=== PATIENT | male | born 1965 | race Hispanic/Latino ===

== ENCOUNTER 2019-08-16 14:10 | Emergency (ER) | payer SELFPAY ==
--- NOTE | 2019-08-16 15:13 | EDPHYS ---
Physician Documentation [facility] Name: Chente Armenta Age: 54 yrs Sex: Male : 1965 Arrival Date: 08/16/2019 Time: 14:15 Bed 11 Private MD: ED Physician Armin Reza HPI: 08/16 15:09 This 54 yrs old Male presents to ER via Ambulatory with complaints of Knee jr8 Pain. 15:09 The patient presents with pain. The complaints affect the left knee. Context: The jr8 problem was sustained at a restaurant, resulted from the patient falling, the patient can partially bear weight, the patient is able to ambulate, with mild difficulty. Onset: The symptoms/episode began/occurred acutely, today. Modifying factors: The symptoms are alleviated by nothing. the symptoms are aggravated by movement, weight bearing, bending knee. Associated signs and symptoms: The patient has no apparent associated signs or symptoms. Severity of symptoms: At their worst the symptoms were moderate, in the emergency department the symptoms are unchanged. The patient has not experienced similar symptoms in the past. The patient has not recently seen a physician. Patient stated that he slipped on some water near restroom at [facility]. Denies hitting head or neck. No LOC. [place] left knee twist and pop. Since then has had pain . Historical: - Allergies: 14:26 Amoxicillin; hb - Home Meds: 14:26 amlodipine 10 mg tab 1 tab once daily [Active]; aspirin 81 mg Oral TbEC 1 tab once hb daily [Active]; enalapril maleate 20 mg Oral tab 1 tab 2 times per day [Active]; metoprolol tartrate 100 mg Oral tab 1 tab 2 times per day [Active]; - PMHx: 14:26 CVA; Hypertension; hb - PSHx: 14:26 None; hb - Immunization history:: Adult Immunizations up to date. - Social history:: Smoking status: Patient/guardian denies using tobacco. - Ebola Screening: : No symptoms or risks identified at this time. ROS: 15:09 Eyes: Negative for injury, pain, redness, and discharge, ENT: Negative for injury, jr8 pain, and discharge, Neck: Negative for injury, pain, and swelling, Cardiovascular: Negative for chest pain, palpitations, and edema, Respiratory: Negative for shortness of breath, cough, wheezing, and pleuritic chest pain, Abdomen/GI: Negative for abdominal pain, nausea, vomiting, diarrhea, and constipation, Back: Negative for injury and pain, Skin: Negative for injury, rash, and discoloration, Neuro: Negative for headache, weakness, numbness, tingling, and seizure. 15:09 MS/extremity: Positive for pain, tenderness, of the left knee. Exam: 15:09 Head/Face: Normocephalic, atraumatic. Eyes: Pupils equal round and reactive to light, jr8 extra-ocular motions intact. Lids and lashes normal. Conjunctiva and sclera are non-icteric and not injected. Cornea within normal limits. Periorbital areas with no swelling, redness, or edema. ENT: Nares patent. No nasal discharge, no septal abnormalities noted. Tympanic membranes are normal and external auditory canals are clear. Oropharynx with no redness, swelling, or masses, exudates, or evidence of obstruction, uvula midline. Mucous membranes moist. Neck: Trachea midline, no thyromegaly or masses palpated, and no cervical lymphadenopathy. Supple, full range of motion without nuchal rigidity, or vertebral point tenderness. No Meningismus. Chest/axilla: Normal chest wall appearance and motion. Nontender with no deformity. No lesions are appreciated. Cardiovascular: Regular rate and rhythm with a normal S1 and S2. No gallops, murmurs, or rubs. Normal PMI, no JVD. No pulse deficits. Respiratory: Lungs have equal breath sounds bilaterally, clear to auscultation and percussion. No rales, rhonchi or wheezes noted. No increased work of breathing, no retractions or nasal flaring. Abdomen/GI: Soft, non-tender, with normal bowel sounds. No distension or tympany. No guarding or rebound. No evidence of tenderness throughout. Back: No spinal tenderness. No costovertebral tenderness. Full range of motion. Skin: Warm, dry with normal turgor. Normal color with no rashes, no lesions, and no evidence of cellulitis. Neuro: Awake and alert, GCS 15, oriented to person, place, time, and situation. Cranial nerves II-XII grossly intact. Motor strength 5/5 in all extremities. Sensory grossly intact. Cerebellar exam normal. Normal gait. 15:09 Musculoskeletal/extremity: Extremities: grossly normal except: noted in the left knee: pain, tenderness, Posterior knee and lateral joint line. No gross effusion noted. No external trauma noted , ROM: intact in all extremities, full active range of motion, full passive range of motion, limited active range of motion due to pain, limited passive range of motion due to pain, Circulation is intact in all extremities. Sensation intact. Vital Signs: 14:26 BP 167 / 89; Pulse 74; Resp 16; Temp 97.8; Pulse Ox 100% on R/A; Weight 108.41 kg; hb Height 5 ft. 11 in. (180.34 cm); Pain 8/10; 14:26 Body Mass Index 33.33 (108.41 kg, 180.34 cm) hb MDM: 14:34 Patient medically screened. jr8 15:11 Data reviewed: vital signs, nurses notes, radiologic studies, plain films, and as a jr8 result, I will discharge patient. Data interpreted: Pulse oximetry: on room air is 100 %. Interpretation: normal. Counseling: I had a detailed discussion with the patient and/or guardian regarding: the historical points, exam findings, and any diagnostic results supporting the discharge/admit diagnosis, radiology results, the need for outpatient follow up, a orthopedic surgeon, to return to the emergency department if symptoms worsen or persist or if there are any questions or concerns that arise at home. 12 14:34 Order name: XRAY Knee LEFT 3 view jr8 Administered Medications: No medications were administered Disposition: 19:02 Co-signature as Attending Physician, Armin Reza MD Signing chart for administrative ps1 purposes. Available for consultation in ED. . Disposition: 08/16/19 15:12 Discharged to Home. Impression: Sprain of other specified parts of left knee. - Condition is Stable. - Discharge Instructions: Knee Sprain. - Prescriptions for meloxicam 15 mg Oral tablet - take 1 tablet by ORAL route once daily As needed; 12 tablet. - Medication Reconciliation Form, Thank You Letter, Antibiotic Education, Prescription Opioid Use form. - Follow up: Enrique Gilbert MD; When: 1 week; Reason: Recheck today's complaints, Continuance of care, Re-evaluation by your physician. - Problem is new. - Symptoms have improved. Signatures: Dispatcher [facility] Martina Bonds RN RN ss Antonio Mcclellan PA PA jr8 Juliet Lucero RN RN Armin Reza MD MD ps1 Corrections: (The following items were deleted from the chart) 15:23 15:12 08/16/2019 15:12 Discharged to Home. Impression: Sprain of other specified parts ss of left knee. Condition is Stable. Forms are Medication Reconciliation Form, Thank You Letter, Antibiotic Education, Prescription Opioid Use. Follow up: Enrique Gilbret; When: 1 week; Reason: Recheck today's complaints, Continuance of care, Re-evaluation by your physician. Problem is new. Symptoms have improved. jr8
--- NOTE | 2019-08-16 15:13 | ER ---
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 Pt was exiting [employer] [facility], slipped on wet floor, felt and heard left knee pop, landed supine. Denies other injuries. Transition of care: patient was not received from another setting of care. Onset of symptoms was August 16, 2019. Risk Assessment: Do you want to hurt yourself or someone else? Patient reports no desire to harm self or others. 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 14:24 Method Of Arrival: Ambulatory hb 14:24 Acuity: JUMANA 4 hb Historical: - Allergies: 14:26 Amoxicillin; hb - Home Meds: 14:26 amlodipine 10 mg tab 1 tab once daily [Active]; aspirin 81 mg Oral TbEC 1 tab once hb daily [Active]; enalapril maleate 20 mg Oral tab 1 tab 2 times per day [Active]; metoprolol tartrate 100 mg Oral tab 1 tab 2 times per day [Active]; - PMHx: 14:26 CVA; Hypertension; hb - PSHx: 14:26 None; hb - Immunization history:: Adult Immunizations up to date. - Social history:: Smoking status: Patient/guardian denies using tobacco. - Ebola Screening: : No symptoms or risks identified at this time. Vital Signs: 14:26 BP 167 / 89; Pulse 74; Resp 16; Temp 97.8; Pulse Ox 100% on R/A; Weight 108.41 kg; hb Height 5 ft. 11 in. (180.34 cm); Pain 8/10; 14:26 Body Mass Index 33.33 (108.41 kg, 180.34 cm) hb ED Course: 14:15 Patient arrived in ED. mr 14:26 Triage completed. hb 14:26 Arm band placed on. hb 14:34 Antonio Mcclellan PA is PHCP. jr8 14:34 Armin Reza MD is Attending Physician. jr8 15:03 XRAY Knee LEFT 3 view In Process Unspecified. EDMS 15:12 Enrique Gilbert MD is Referral Physician. jr8 15:22 No provider procedures requiring assistance completed. Patient did not have IV access ss during this emergency room visit. Administered Medications: No medications were administered Outcome: 15:12 Discharge ordered by MD. jr8 15:22 Discharged to home ambulatory, with family. ss 15:22 Condition: good 15:22 Discharge instructions given to patient, family, Instructed on discharge instructions, follow up and referral plans. medication usage, Demonstrated understanding of instructions, follow-up care, medications, Prescriptions given X 1. 15:23 Patient left the ED. ss Signatures: Dispatcher [employer] [facility] ChanSunshine Shelby, RN RN Antonio Aaron PA PA jr8 Juliet Lucero, LIVIA RN
[2019-08-16 15:28] VITALS: BP 167/89; TEMP 97.8; O2SAT 100
--- NOTE | 2019-08-16 15:36 | RAD REPORT ---
EXAM DESCRIPTION: RAD - Knee Left 3 View - 08/16/2019 3:01 pm CLINICAL HISTORY: PAIN COMPARISON: No comparisons FINDINGS: No fracture, dislocation or joint effusion.
== END 2019-08-16 15:23 | disposition home or self-care (01) ==
LOC: ER 14:10
DX: S83.8X2A Sprain of other specified parts of left knee, initial encounter (principal); W01.0XXA Fall on same level from slipping, tripping and stumbling without subsequent striking against object, initial encounter; Y93.89 Activity, other specified; Y92.511 Restaurant or cafe as the place of occurrence of the external cause; Z88.1 Allergy status to other antibiotic agents; I10 Essential (primary) hypertension; Z86.73 Personal history of transient ischemic attack (TIA), and cerebral infarction without residual deficits
CPT/HCPCS: 99283

== ENCOUNTER 2019-09-19 09:52 | Emergency (ER) | payer SELFPAY ==
[2019-09-19] MEDS ORDERED: LEVALBUTEROL 1.25 MG/3 ML NEB ONE (10:29)
--- NOTE | 2019-09-19 11:01 | ER ---
Nurse's Notes [facility] Name: Chente Armenta Age: 54 yrs Sex: Male : 1965 Arrival Date: 09/19/2019 Time: 09:54 Bed 23 Private MD: Diagnosis: Influenza due to certain identified influenza viruses;Streptococcal pharyngitis Presentation: 09/19 09:57 Presenting complaint: Patient states: cough and congestion that began night. aa5 Pt denies sore throat. Also c/o body aches. Transition of care: patient was not received from another setting of care. Onset of symptoms was September 2019. Risk Assessment: Do you want to hurt yourself or someone else? Patient reports no desire to harm self or others. Initial Sepsis Screen: Does the patient meet any 2 criteria? No. Patient's initial sepsis screen is negative. Does the patient have a suspected source of infection? No. Patient's initial sepsis screen is negative. Care prior to arrival: None. 09:57 Acuity: JUMANA 4 aa5 09:57 Method Of Arrival: Ambulatory aa5 Historical: - Allergies: 09:58 Amoxicillin; aa5 - Home Meds: 09:58 amlodipine 10 mg tab 1 tab once daily [Active]; aspirin 81 mg Oral TbEC 1 tab once aa5 daily [Active]; enalapril maleate 20 mg Oral tab 1 tab 2 times per day [Active]; metoprolol tartrate 100 mg Oral tab 1 tab 2 times per day [Active]; - PMHx: 09:58 CVA; Hypertension; aa5 - PSHx: 09:58 None; aa5 - Immunization history:: Flu vaccine is not up to date. - Social history:: Smoking status: Patient/guardian denies using tobacco. - Ebola Screening: : No symptoms or risks identified at this time. Screenin:00 Abuse screen: Denies threats or abuse. Nutritional screening: No deficits noted. aa5 Tuberculosis screening: No symptoms or risk factors identified. Fall Risk None identified. Assessment: 10:00 General: Appears uncomfortable, Behavior is calm, cooperative. Pain: Complains of pain aa5 in whole body Pain does not radiate. Pain currently is 8 out of 10 on a pain scale. Quality of pain is described as aching, Is continuous. Neuro: Level of Consciousness is awake, alert, obeys commands, Oriented to person, place, time, situation. Cardiovascular: Heart tones S1 S2 present Rhythm is regular. Respiratory: Reports cough that is productive, Airway is patent Respiratory effort is even, unlabored, Respiratory pattern is regular, symmetrical, Breath sounds are diminished bilaterally. GI: Abdomen is obese, Bowel sounds present X 4 quads. Abd is soft and non tender X 4 quads. : No signs and/or symptoms were reported regarding the genitourinary system. EENT: Reports nasal congestion nasal discharge. Derm: Skin is pink, warm \T\ dry. Musculoskeletal: Range of motion: intact in all extremities. 11:00 Reassessment: Patient appears in no apparent distress at this time. No changes from aj1 previously documented assessment. Patient and/or family updated on plan of care and expected duration. Pain level reassessed. Patient is alert, oriented x 3, equal unlabored respirations, skin warm/dry/pink. Vital Signs: 09:58 BP 154 / 78; Pulse 84; Resp 18 S; Temp 99.0(O); Pulse Ox 96% on R/A; Weight 113.4 kg aa5 (R); Height 5 ft. 11 in. (180.34 cm) (R); Pain 8/10; 09:58 Body Mass Index 34.87 (113.40 kg, 180.34 cm) aa5 ED Course: 09:54 Patient arrived in ED. as 09:57 Triage completed. aa5 09:57 Arm band placed on. aa5 09:57 Patient has correct armband on for positive identification. Bed in low position. Call aa5 light in reach. Side rails up X 1. Adult w/ patient. 09:59 Rajwinder Lester, RN is Primary Nurse. aa5 09:59 Sascha Jimenes PA is PHCP. [facility] 10:00 Papito Pham MD is Attending Physician. [facility] 11:18 No provider procedures requiring assistance completed. Patient did not have IV access aj1 during this emergency room visit. Administered Medications: 10:29 Drug: Xopenex (3) 1.25 mg Route: Inhalation; aa5 11:19 Follow up: Response: No adverse reaction aj1 11:17 Drug: Tussionex Pennkinetic ER 5 ml Route: PO; aj1 11:18 Follow up: Response: No adverse reaction aj1 Outcome: 10:59 Discharge ordered by MD. hood 11:18 Discharged to home ambulatory. aj1 11:18 Condition: good 11:18 Discharge instructions given to patient, Instructed on discharge instructions, follow up and referral plans. no drinking with medication, no driving heavy equipment, medication usage, Demonstrated understanding of instructions, follow-up care, medications, Prescriptions given X 3. 11:20 Patient left the ED. aj1 Signatures: Cely Holcomb RN RN aj1 Sascha Jimenes PA PA jmm Martinez, Amelia as Rajwinder Lester RN RN aa5 Corrections: (The following items were deleted from the chart) 09:57 Presenting complaint: Patient states: cough and congestion that began aa5 night. Pt denies sore throat. aa5 09:59 09:58 BP 154 / 78; Pulse 84bpm; Resp 18bpm; Spontaneous; Pulse Ox 96% RA; Temp 99.0F aa5 Oral; 113.4 kg Reported; Height 5 ft. 11 in. Reported; BMI: 34.8; aa5
--- NOTE | 2019-09-19 11:01 | EDPHYS ---
Physician Documentation [facility] Name: Chente Armenta Age: 54 yrs Sex: Male : 1965 Arrival Date: 09/19/2019 Time: 09:54 Bed 23 Private MD: ED Physician Papito Pham HPI: 09/19 10:17 This 54 yrs old Male presents to ER via Ambulatory with complaints of Flu jmm Symptoms. 10:17 The patient or guardian reports cough. Onset: The symptoms/episode began/occurred jmm gradually, 5 day(s) ago. Modifying factors: The symptoms are alleviated by nothing. the symptoms are aggravated by nothing. Associated signs and symptoms: Pertinent positives: sore throat, vomiting. This is a 54 year old male with a history of CVA, HTN that presents to the ED with complaints of cough, sore throat, vomiting beginning this past . Denies diarrhea. . Historical: - Allergies: 09:58 Amoxicillin; aa5 - Home Meds: 09:58 amlodipine 10 mg tab 1 tab once daily [Active]; aspirin 81 mg Oral TbEC 1 tab once aa5 daily [Active]; enalapril maleate 20 mg Oral tab 1 tab 2 times per day [Active]; metoprolol tartrate 100 mg Oral tab 1 tab 2 times per day [Active]; - PMHx: 09:58 CVA; Hypertension; aa5 - PSHx: 09:58 None; aa5 - Immunization history:: Flu vaccine is not up to date. - Social history:: Smoking status: Patient/guardian denies using tobacco. - Ebola Screening: : No symptoms or risks identified at this time. ROS: 10:17 Cardiovascular: Negative for chest pain, palpitations, and edema. jmm 10:17 Constitutional: Positive for body aches, fever. 10:17 ENT: Positive for sore throat. 10:17 Respiratory: Positive for cough. 10:17 Abdomen/GI: Positive for vomiting. 10:17 All other systems are negative. Exam: 10:17 Constitutional: This is a well developed, well nourished patient who is awake, alert, jmm and in no acute distress. Head/Face: atraumatic. Eyes: EOMI, no conjunctival erythema appreciated ENT: Moist Mucus Membranes Neck: Trachea midline, Supple Chest/axilla: Normal chest wall appearance and motion. Cardiovascular: Regular rate and rhythm. No edema appreciated Respiratory: Normal respirations, no respiratory distress appreciated Abdomen/GI: Non distended, soft Back: Normal ROM Skin: General appearance color normal MS/ Extremity: Moves all extremities, no obvious deformities appreciated, no edema noted to the lower extremities Neuro: Awake and alert, normal gait Psych: Behavior is normal, Mood is normal, Patient is cooperative and pleasant 10:17 ENT: Posterior pharynx: erythema, that is mild. Vital Signs: 09:58 BP 154 / 78; Pulse 84; Resp 18 S; Temp 99.0(O); Pulse Ox 96% on R/A; Weight 113.4 kg aa5 (R); Height 5 ft. 11 in. (180.34 cm) (R); Pain 8/10; 09:58 Body Mass Index 34.87 (113.40 kg, 180.34 cm) aa5 MDM: 10:12 [facility]. [facility] 10:58 Data reviewed: vital signs, nurses notes. Counseling: I had a detailed discussion with [facility] the patient and/or guardian regarding: the historical points, exam findings, and any diagnostic results supporting the discharge/admit diagnosis, lab results, the need for outpatient follow up, to return to the emergency department if symptoms worsen or persist or if there are any questions or concerns that arise at home. ED course: Patient is alert and non toxic in appearance in the ED. Patient advised to follow up with his pcp and otherwise given strict return precautions. patient understood and agrees with the plan of care. . 09/19 10:00 Order name: Flu; Complete Time: 10:31 [facility] 09/19 10:00 Order name: Strep; Complete Time: 10:31 [facility] Administered Medications: 10:29 Drug: Xopenex (3) 1.25 mg Route: Inhalation; aa5 11:19 Follow up: Response: No adverse reaction aj1 11:17 Drug: Tussionex Pennkinetic ER 5 ml Route: PO; aj1 11:18 Follow up: Response: No adverse reaction aj1 Disposition: 11:21 Co-signature as Attending Physician, Papito Pham MD I agree with the assessment and kdr plan of care. Disposition: 09/19/19 10:59 Discharged to Home. Impression: Influenza due to certain identified influenza viruses, Streptococcal pharyngitis. - Condition is Stable. - Discharge Instructions: Influenza, Adult, Strep Throat. - Prescriptions for Guaifenesin AC - take 5 milliliter by ORAL route every 4-6 hours; 120 milliliter. Zithromax Z- Kyrie 250 mg Oral Tablet - take 1 tablet by ORAL route as directed for 5 days Day 1 - take two (2) tablets one time. Day 2, 3, 4 , 5 take one (1) tablet once daily.; 6 tablet. Albuterol Sulfate 90 mcg/actuation - inhale 1-2 puff by INHALATION route every 4-6 hours; 1 Inhaler. - Medication Reconciliation Form, Thank You Letter, Antibiotic Education, Prescription Opioid Use form. - Follow up: Private Physician; When: 2 - 3 days; Reason: Recheck today's complaints, Continuance of care, Re-evaluation by your physician. Signatures: Dispatcher [employer] Cely Mcmahan RN RN aj1 Papito Pham MD MD kdr Mickail, Joel PA PA [facility] Rajwinder Lester RN RN aa5 Corrections: (The following items were deleted from the chart) 10:45 10:16 Chest Pa And Lat (2 Views)+[email or web address] ordered. [facility] 11:20 10:59 09/19/2019 10:59 Discharged to Home. Impression: Influenza due to certain aj1 identified influenza viruses; Streptococcal pharyngitis. Condition is Stable. Forms are Medication Reconciliation Form, Thank You Letter, Antibiotic Education, Prescription Opioid Use. Follow up: Private Physician; When: 2 - 3 days; Reason: Recheck today's complaints, Continuance of care, Re-evaluation by your physician. she
[2019-09-19] MEDS ORDERED: HYDROCODONE/CHLORPHEN 5 ML/OSYR ONE (11:18)
[2019-09-19 11:50] VITALS: BP 154/78; TEMP 99; O2SAT 96
== END 2019-09-19 11:20 | disposition home or self-care (01) ==
LOC: ER 09:52
DX: J10.1 Influenza due to other identified influenza virus with other respiratory manifestations (principal); I10 Essential (primary) hypertension; Z88.1 Allergy status to other antibiotic agents
CPT/HCPCS: 87081; 87804; 99284

== ENCOUNTER 2019-09-22 10:35 | Emergency (ER) | payer SELFPAY ==
--- NOTE | 2019-09-22 12:43 | RAD REPORT ---
EXAM DESCRIPTION: Patrice Merlos (2 Views)09/22/2019 12:37 pm CLINICAL HISTORY: sob COMPARISON: 2011 FINDINGS: Prominence of the interstitium within the lungs bilaterally. The heart is normal size IMPRESSION: Prominence of the interstitium within the lungs bilaterally may indicate a viral pneumon ia or atypical infection
[2019-09-22] MEDS ORDERED: ALBUTEROL 2.5 MG/3 ML NEB SOL ONE (12:52)
--- NOTE | 2019-09-22 13:52 | ER ---
Nurse's Notes [facility] Name: Chente Armenta Age: 54 yrs Sex: Male : 1965 Arrival Date: 09/22/2019 Time: 10:37 Bed 27 Private MD: Diagnosis: Pneumonia due to other specified bacteria Presentation: 09/22 11:02 Presenting complaint: Patient states: SOB that began this morning. Pt reports being aa5 diagnosed with strep throat and flu A on Wednesday here. Transition of care: patient was not received from another setting of care. Onset of symptoms was September 2019. Risk Assessment: Do you want to hurt yourself or someone else? Patient reports no desire to harm self or others. Initial Sepsis Screen: Does the patient meet any 2 criteria? No. Patient's initial sepsis screen is negative. Does the patient have a suspected source of infection? No. Patient's initial sepsis screen is negative. Care prior to arrival: None. 11:02 Acuity: JUMANA 3 aa5 11:02 Method Of Arrival: Ambulatory aa5 Triage Assessment: 13:16 General: Appears in no apparent distress. comfortable, Behavior is calm, cooperative. mg2 Respiratory: Onset: The symptoms/episode began/occurred gradually, the patient has mild shortness of breath. Historical: - Allergies: 11:04 Amoxicillin; aa5 - Home Meds: 11:04 metoprolol tartrate 100 mg Oral tab 1 tab 2 times per day [Active]; enalapril maleate aa5 20 mg Oral tab 1 tab 2 times per day [Active]; aspirin 81 mg Oral TbEC 1 tab once daily [Active]; amlodipine 10 mg tab 1 tab once daily [Active]; - PMHx: 11:04 CVA; Hypertension; aa5 - PSHx: 11:04 None; aa5 - Immunization history:: Flu vaccine is not up to date. - Social history:: Smoking status: Patient/guardian denies using tobacco. - Ebola Screening: : No symptoms or risks identified at this time. Screenin:16 Abuse screen: Denies threats or abuse. Denies injuries from another. Nutritional mg2 screening: No deficits noted. Tuberculosis screening: No symptoms or risk factors identified. Fall Risk None identified. Assessment: 13:14 General: Appears in no apparent distress. comfortable, Behavior is calm, cooperative. mg2 Pain: Denies pain. Neuro: Level of Consciousness is awake, alert, obeys commands, Oriented to person, place, time, situation. Cardiovascular: Capillary refill < 3 seconds Patient's skin is warm and dry. Respiratory: Airway is patent Respiratory effort is even, unlabored, Respiratory pattern is regular, symmetrical, Respiratory: Reports shortness of breath. GI: No signs and/or symptoms were reported involving the gastrointestinal system. : No signs and/or symptoms were reported regarding the genitourinary system. EENT: No signs and/or symptoms were reported regarding the EENT system. Derm: Skin is intact, is healthy with good turgor, Skin is pink, warm \T\ dry. normal. Musculoskeletal: Circulation, motion, and sensation intact. Capillary refill < 3 seconds. 13:34 Reassessment: Patient appears in no apparent distress at this time. Patient and/or mg2 family updated on plan of care and expected duration. Pain level reassessed. Patient is alert, oriented x 3, equal unlabored respirations, skin warm/dry/pink. 14:06 Cardiovascular: Rhythm is regular. mg2 Vital Signs: 11:04 BP 118 / 74; Pulse 65; Resp 18 S; Temp 98.2(O); Pulse Ox 95% on R/A; aa5 13:35 BP 136 / 80; Pulse 58; Resp 17; Pulse Ox 100% on Nebulizer Mask; mg2 ED Course: 10:37 Patient arrived in ED. as 11:02 Arm band placed on. aa5 11:03 Triage completed. aa5 12:09 Antonio Mcclellan PA is PHCP. jr8 12:10 Otf Marie MD is Attending Physician. jr8 12:11 Michael Fernandez, LIVIA is Primary Nurse. mg2 12:37 XRAY Chest Pa And Lat (2 Views) In Process Unspecified. EDMS 13:16 Patient has correct armband on for positive identification. mg2 13:16 No provider procedures requiring assistance completed. Patient did not have IV access mg2 during this emergency room visit. Administered Medications: 12:51 Drug: Albuterol 2.5 mg Route: Inhalation; mg2 13:15 Drug: Albuterol 2.5 mg Route: Inhalation; mg2 13:34 Drug: Albuterol 2.5 mg Route: Inhalation; mg2 13:34 Follow up: Response: No adverse reaction mg2 14:05 Follow up: Response: No adverse reaction mg2 Outcome: 13:51 Discharge ordered by MD. maharaj 14:05 Discharged to home ambulatory, with family. mg2 14:05 Condition: good 14:05 Discharge instructions given to patient, family, Instructed on discharge instructions, follow up and referral plans. medication usage, Demonstrated understanding of instructions, follow-up care, medications, Prescriptions given X 3. 14:06 Patient left the ED. mg2 Signatures: Dispatcher [employer] EDMS Yasmine Raygoza Audri, RN RN aa5 Antonio Mcclellan PA PA jr8 Michael Fernandez RN RN mg2
--- NOTE | 2019-09-22 13:52 | EDPHYS ---
Physician Documentation [facility] Name: Chente Armenta Age: 54 yrs Sex: Male : 1965 Arrival Date: 09/22/2019 Time: 10:37 Bed 27 Private MD: ED Physician Otf Marie HPI: 09/22 12:46 This 54 yrs old Male presents to ER via Ambulatory with complaints of jr8 Shortness Of Breath - flu/strep +. 12:46 The patient has shortness of breath at rest. Onset: The symptoms/episode began/occurred jr8 suddenly, today. Duration: The symptoms are continuous. The patient's shortness of breath has no apparent modifying factors. Associated signs and symptoms: Pertinent positives: non-productive cough. Severity of symptoms: At their worst the symptoms were moderate in the emergency department the symptoms are unchanged. The patient has not experienced similar symptoms in the past. The patient has been recently seen by a physician:. Patient diagnosed with influenza and strep this past Wednesday. Stated that today after taking shower started to feel acute short of breath. Currently is on zithromax and albuterol at home. Historical: - Allergies: 11:04 Amoxicillin; aa5 - Home Meds: 11:04 metoprolol tartrate 100 mg Oral tab 1 tab 2 times per day [Active]; enalapril maleate aa5 20 mg Oral tab 1 tab 2 times per day [Active]; aspirin 81 mg Oral TbEC 1 tab once daily [Active]; amlodipine 10 mg tab 1 tab once daily [Active]; - PMHx: 11:04 CVA; Hypertension; aa5 - PSHx: 11:04 None; aa5 - Immunization history:: Flu vaccine is not up to date. - Social history:: Smoking status: Patient/guardian denies using tobacco. - Ebola Screening: : No symptoms or risks identified at this time. ROS: 12:46 Eyes: Negative for injury, pain, redness, and discharge, ENT: Negative for injury, jr8 pain, and discharge, Neck: Negative for injury, pain, and swelling, Cardiovascular: Negative for chest pain, palpitations, and edema, Abdomen/GI: Negative for abdominal pain, nausea, vomiting, diarrhea, and constipation, Back: Negative for injury and pain, MS/Extremity: Negative for injury and deformity, Skin: Negative for injury, rash, and discoloration, Neuro: Negative for headache, weakness, numbness, tingling, and seizure. 12:46 Respiratory: Positive for cough, shortness of breath. Exam: 12:46 Eyes: Pupils equal round and reactive to light, extra-ocular motions intact. Lids and jr8 lashes normal. Conjunctiva and sclera are non-icteric and not injected. Cornea within normal limits. Periorbital areas with no swelling, redness, or edema. ENT: Nares patent. No nasal discharge, no septal abnormalities noted. Tympanic membranes are normal and external auditory canals are clear. Oropharynx with no redness, swelling, or masses, exudates, or evidence of obstruction, uvula midline. Mucous membranes moist. Neck: Trachea midline, no thyromegaly or masses palpated, and no cervical lymphadenopathy. Supple, full range of motion without nuchal rigidity, or vertebral point tenderness. No Meningismus. Cardiovascular: Regular rate and rhythm with a normal S1 and S2. No gallops, murmurs, or rubs. Normal PMI, no JVD. No pulse deficits. Abdomen/GI: Soft, non-tender, with normal bowel sounds. No distension or tympany. No guarding or rebound. No evidence of tenderness throughout. Back: No spinal tenderness. No costovertebral tenderness. Full range of motion. Skin: Warm, dry with normal turgor. Normal color with no rashes, no lesions, and no evidence of cellulitis. MS/ Extremity: Pulses equal, no cyanosis. Neurovascular intact. Full, normal range of motion. Neuro: Awake and alert, GCS 15, oriented to person, place, time, and situation. Cranial nerves II-XII grossly intact. Motor strength 5/5 in all extremities. Sensory grossly intact. Cerebellar exam normal. Normal gait. 12:46 Respiratory: the patient does not display signs of respiratory distress, Respirations: normal, symetrical, no use of accessory muscles, no grunting, no evidence of nasal flaring, no appreciated paradoxical movements, no pursed lip breathing, no retractions, no shallow respirations, no splinting, no tachypnea, Breath sounds: rales, that are mild, are heard in the left posterior lower lobe. Vital Signs: 11:04 BP 118 / 74; Pulse 65; Resp 18 S; Temp 98.2(O); Pulse Ox 95% on R/A; aa5 13:35 BP 136 / 80; Pulse 58; Resp 17; Pulse Ox 100% on Nebulizer Mask; mg2 MDM: 12:10 Patient medically screened. jr8 12:46 Data reviewed: vital signs, nurses notes, old medical records, radiologic studies, jr8 plain films. Data interpreted: Pulse oximetry: on room air is 95 %. Interpretation: normal. Counseling: I had a detailed discussion with the patient and/or guardian regarding: the historical points, exam findings, and any diagnostic results supporting the discharge/admit diagnosis, radiology results, the need for outpatient follow up, a family practitioner, to return to the emergency department if symptoms worsen or persist or if there are any questions or concerns that arise at home. 13:48 ED course: Patient feeling much better. CXR suspicious for pneumonia. Will have him jr8 finish zithromax and start him on steroids. 09/22 12:11 Order name: XRAY Chest Pa And Lat (2 Views); Complete Time: 12:45 jr8 Administered Medications: 12:51 Drug: Albuterol 2.5 mg Route: Inhalation; mg2 13:15 Drug: Albuterol 2.5 mg Route: Inhalation; mg2 13:34 Drug: Albuterol 2.5 mg Route: Inhalation; mg2 13:34 Follow up: Response: No adverse reaction mg2 14:05 Follow up: Response: No adverse reaction mg2 Disposition: 15:20 Co-signature as Attending Physician, Otf Marie MD I agree with the assessment and peng plan of care. Disposition: 09/22/19 13:51 Discharged to Home. Impression: Pneumonia due to other specified bacteria. - Condition is Stable. - Discharge Instructions: Community-Acquired Pneumonia, Adult. - Prescriptions for Levaquin 500 mg Oral Tablet - take 1 tablet by ORAL route once daily for 5 days; 5 tablet. Medrol (Kyrie) 4 mg Oral Tablets, Dose Pack - take 1 tablet by ORAL route as directed - follow package instructions; 1 packet. Zofran 4 mg Oral Tablet - take 1 tablet by ORAL route every 12 hours As needed; 20 tablet. Albuterol Sulfate 90 mcg/actuation - inhale 1-2 puff by INHALATION route every 4-6 hours; 1 Inhaler. - Medication Reconciliation Form, Thank You Letter, Antibiotic Education, Prescription Opioid Use form. - Follow up: Private Physician; When: 2 - 3 days; Reason: Recheck today's complaints, Continuance of care, Re-evaluation by your physician. - Problem is new. - Symptoms have improved. Signatures: Dispatcher [employer] EDOtf Odonnell MD MD cha Calderon, Audri, RN RN aa5 Antonio Mcclellan PA PA jr8 Michael Fernandez RN RN mg2 Corrections: (The following items were deleted from the chart) 14:06 13:51 09/22/2019 13:51 Discharged to Home. Impression: Pneumonia due to other specified mg2 bacteria. Condition is Stable. Forms are Medication Reconciliation Form, Thank You Letter, Antibiotic Education, Prescription Opioid Use. Follow up: Private Physician; When: 2 - 3 days; Reason: Recheck today's complaints, Continuance of care, Re-evaluation by your physician. Problem is new. Symptoms have improved. jr8
[2019-09-22 14:43] VITALS: TEMP 98.2
[2019-09-22 14:44] VITALS: BP 136/80; O2SAT 100
== END 2019-09-22 14:06 | disposition home or self-care (01) ==
LOC: ER 10:35
DX: J15.8 Pneumonia due to other specified bacteria (principal); Z88.1 Allergy status to other antibiotic agents; I10 Essential (primary) hypertension
CPT/HCPCS: 71046; 99284

== ENCOUNTER 2019-12-09 18:05 | Emergency (ER) | payer SELFPAY ==
[2019-12-09] MEDS ORDERED: LIDOCAINE 1% MPF 5 ML VIAL ONE (18:27)
[2019-12-09] MEDS ORDERED: TETANUS & DIPHTHERIA TOX,ADULT 0.5 ML VIAL ONE (18:34)
--- NOTE | 2019-12-09 19:34 | EDPHYS ---
Physician Documentation [facility] Name: Chente Armenta Age: 54 yrs Sex: Male : 1965 Arrival Date: 12/09/2019 Time: 18:08 Bed 24 Private MD: Laura Valdez H ED Physician Otf Marie HPI: 12/08 18:11 This 54 yrs old Male presents to ER via Ambulatory with complaints of Finger jmm Injury. 18:11 The patient or guardian reports injury, a laceration. Onset: The symptoms/episode jmm began/occurred acutely, just prior to arrival. 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 No UTD on tetanus immunizations. . Historical: - Allergies: 18:17 Amoxicillin; ss - Home Meds: 18:17 metoprolol tartrate 100 mg Oral tab 1 tab 2 times per day [Active]; enalapril maleate ss 20 mg Oral tab 1 tab 2 times per day [Active]; aspirin 81 mg Oral TbEC 1 tab once daily [Active]; - PMHx: 18:17 CVA; Hypertension; ss - PSHx: 18:17 None; ss - Immunization history:: Adult Immunizations up to date. - Social history:: Smoking status: Patient denies any tobacco usage or history of. ROS: 18:11 Constitutional: Negative for fever, chills, and weight loss, Cardiovascular: Negative jmm for chest pain, palpitations, and edema, Respiratory: Negative for shortness of breath, cough, wheezing, and pleuritic chest pain. 18:11 MS/extremity: Positive for injury or acute deformity, laceration. 18:11 Skin: Positive for laceration(s). 18:11 All other systems are negative. Exam: 19:25 Constitutional: This is a well developed, well nourished patient who is awake, alert, jmm and in no acute distress. Head/Face: atraumatic. Eyes: EOMI, no conjunctival erythema appreciated ENT: Moist Mucus Membranes Neck: Trachea midline, Supple Chest/axilla: Normal chest wall appearance and motion. Cardiovascular: Regular rate and rhythm. No edema appreciated Respiratory: Normal respirations, no respiratory distress appreciated Abdomen/GI: Non distended, soft Back: Normal ROM 19:25 Skin: General appearance color normal MS/ Extremity: Moves all extremities, no obvious deformities appreciated, no edema noted to the lower extremities Neuro: Awake and alert, normal gait Psych: Behavior is normal, Mood is normal, Patient is cooperative and pleasant 19:25 Skin: injury, laceration(s), the wound is approximately 3 cm(s), of the dorsal aspect of distal phalanx of left index finger and palmar aspect of distal phalanx of left index finger. Vital Signs: 18:15 Pulse 68; Resp 16; Temp 97.7(TE); Pulse Ox 99% on R/A; Weight 108.86 kg; Height 5 ft. ss 11 in. (180.34 cm); Pain 0/10; 18:15 Body Mass Index 33.47 (108.86 kg, 180.34 cm) ss Laceration: 19:25 Wound Repair of 3cm ( 1.2in ) subcutaneous laceration to left hand and palmar aspect of jmm distal phalanx of left index finger and dorsal aspect of distal phalanx of left index finger. Distal neuro/vascular/tendon intact. Anesthesia: Local anesthetic administered with 5 mls of 1% lidocaine. Skin closed with 7 5-0 Prolene using simple sutures and sterile technique. Patient tolerated well. MDM: 18:11 Patient medically screened. [facility] 19:32 Data reviewed: vital signs, nurses notes. Counseling: I had a detailed discussion with sana the patient and/or guardian regarding: the historical points, exam findings, and any diagnostic results supporting the discharge/admit diagnosis, the need for outpatient follow up, to return to the emergency department if symptoms worsen or persist or if there are any questions or concerns that arise at home. ED course: Patient given wound infection return precautions. Patient understood and agrees with the plan of care. . Administered Medications: 18:30 Drug: Lidocaine (1 %) 5 ml {Note: by Rory Jimenes for suture repair..} Volume: 5 ml; ll1 Route: Infiltration; 19:41 Follow up: Response: No adverse reaction ll1 18:35 Drug: Tetanus-Diphtheria Toxoid Adult 0.5 ml {Tip Mender: [employer]. Exp: ll1 02/16/2021. Lot #: [id number]. } Route: IM; Site: right deltoid; 19:40 Follow up: Response: No adverse reaction; RASS: Alert and Calm (0) 1 Disposition: 12/09 13:51 Co-signature as Attending Physician, Otf Marie MD I agree with the assessment and peng plan of care. Disposition: 12/09/19 19:33 Discharged to Home. Impression: Finger Laceration. - Condition is Stable. - Discharge Instructions: Laceration Care, Adult. - Medication Reconciliation Form, Thank You Letter, Antibiotic Education, Prescription Opioid Use form. - Follow up: Laura Valdez DO; When: 7 - 10 days; Reason: Recheck today's complaints, Continuance of care, Staple/Suture removal, Re-evaluation by your physician. Signatures: Otf Marie MD MD cha Mickail, Joel, PA PA jmm Smirch, Shelby, RN RN ss Dilan Kelly RN RN ll1 Corrections: (The following items were deleted from the chart) 12/08 19:41 19:33 12/09/2019 19:33 Discharged to Home. Impression: Finger Laceration. Condition is ll1 Stable. Forms are Medication Reconciliation Form, Thank You Letter, Antibiotic Education, Prescription Opioid Use. Follow up: Laura Valdez; When: 7 - 10 days; Reason: Recheck today's complaints, Continuance of care, Staple/Suture removal, Re-evaluation by your physician. sana
--- NOTE | 2019-12-09 19:34 | ER ---
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 Coronavirus screen: Patient denies fever greater than 100.4F, cough, shortness of breath, or difficulty breathing. Proceed with normal triage process. Ebola Screen: Patient denies exposure to infectious person. Patient denies travel to an Ebola-affected area in the 21 days before illness onset. Initial Sepsis Screen: Does the patient meet any 2 criteria? No. Patient's initial sepsis screen is negative. Does the patient have a suspected source of infection? No. Patient's initial sepsis screen is negative. Risk Assessment: Do you want to hurt yourself or someone else? Patient reports no desire to harm self or others. 18:15 Method Of Arrival: Ambulatory ss 18:15 Acuity: JUMANA 4 ss 18:49 Onset of symptoms was December 09, 2019. ll1 Historical: - Allergies: 18:17 Amoxicillin; ss - Home Meds: 18:17 metoprolol tartrate 100 mg Oral tab 1 tab 2 times per day [Active]; enalapril maleate ss 20 mg Oral tab 1 tab 2 times per day [Active]; aspirin 81 mg Oral TbEC 1 tab once daily [Active]; - PMHx: 18:17 CVA; Hypertension; ss - PSHx: 18:17 None; ss - Immunization history:: Adult Immunizations up to date. - Social history:: Smoking status: Patient denies any tobacco usage or history of. Screenin:48 Abuse screen: Denies threats or abuse. Nutritional screening: No deficits noted. ll1 Tuberculosis screening: No symptoms or risk factors identified. Fall Risk None identified. Total Daniel Fall Scale indicates No Risk (0-24 pts). Assessment: 18:47 General: Appears in no apparent distress. Behavior is calm, cooperative. Pain: Denies ll1 pain. Neuro: No deficits noted. Cardiovascular: No deficits noted. Respiratory: No deficits noted. GI: No deficits noted. Derm: Reports laceration to finger. Musculoskeletal: No deficits noted. Injury Description: Laceration sustained to right hand 2nd digit is 0.5 to 2.5 cm long, not bleeding, was sustained 1-2 hours ago. a small amount of bleeding noted at this time. Vital Signs: 18:15 Pulse 68; Resp 16; Temp 97.7(TE); Pulse Ox 99% on R/A; Weight 108.86 kg; Height 5 ft. ss 11 in. (180.34 cm); Pain 0/10; 18:15 Body Mass Index 33.47 (108.86 kg, 180.34 cm) ss ED Course: 18:08 Patient arrived in ED. am2 18:08 Laura Valdez DO is Private Physician. am2 18:09 Sascha Jimenes PA is PHCP. [facility] 18:09 Otf Marie MD is Attending Physician. [facility] 18:12 Dilan Kelly, LIVIA is Primary Nurse. 1 18:16 Triage completed. ss 18:17 Arm band placed on right wrist. ss 18:49 Patient has correct armband on for positive identification. Bed in low position. Call ll1 light in reach. Side rails up X 1. 19:33 Laura Valdez DO is Referral Physician. [facility] 19:38 Dressings: Adaptic X 1; left index finger Kerlix X 1; left index finger 4X4s X 1; left ll1 index finger triple antibiotic. 19:39 No provider procedures requiring assistance completed. Patient did not have IV access ll1 during this emergency room visit. Administered Medications: 18:30 Drug: Lidocaine (1 %) 5 ml {Note: by Rory Jimenes for suture repair..} Volume: 5 ml; ll1 Route: Infiltration; 19:41 Follow up: Response: No adverse reaction ll1 18:35 Drug: Tetanus-Diphtheria Toxoid Adult 0.5 ml {[employer]: [employer]. Exp: ll1 02/16/2021. Lot #: [id number]. } Route: IM; Site: right deltoid; 19:40 Follow up: Response: No adverse reaction; RASS: Alert and Calm (0) ll1 Outcome: 19:33 Discharge ordered by . [facility] 19:40 Discharged to home ambulatory. ll1 19:40 Condition: good 19:40 Discharge instructions given to patient, Instructed on discharge instructions, follow up and referral plans. wound care, Demonstrated understanding of instructions, follow-up care, wound care. 19:41 Patient left the ED. 1 Signatures: Sascha Jimenes PA PA jmm Smirch, Shelby, RN RN ss Moreno, Amanda am2 Lewis, Lynsay, RN RN 1
[2019-12-09 19:46] VITALS: TEMP 97.7; O2SAT 99
== END 2019-12-09 19:41 | disposition home or self-care (01) ==
LOC: ER 18:05
PROC: 0JQK0ZZ Repair Left Hand Subcutaneous Tissue and Fascia, Open Approach (ICD-10-PCS; principal; 2019-12-09)
DX: S61.211A Laceration without foreign body of left index finger without damage to nail, initial encounter (principal); W27.8XXA Contact with other nonpowered hand tool, initial encounter; Y93.89 Activity, other specified; Y92.9 Unspecified place or not applicable; Z86.73 Personal history of transient ischemic attack (TIA), and cerebral infarction without residual deficits; Z79.82 Long term (current) use of aspirin; Z23 Encounter for immunization; I10 Essential (primary) hypertension
CPT/HCPCS: 90471; 90714; 99282

== ENCOUNTER 2021-04-29 04:54 | Emergency (ER) | payer OTHER, SELFPAY ==
[2021-04-29 06:09] LABS: Absolute Lymphocytes (CBC) 1.6 K/uL (0.7-4.9); Basophils % 0.3 % (0-1.3); Hematocrit 44.2 % (39.6-49.0); MPV 7.8 fL (7.6-11.3); RBC Red Blood Cell Count 5.12 M/uL (4.33-5.43)
[2021-04-29 06:17] LABS: Protime INR 0.94
[2021-04-29 06:29] LABS: ALT/SGPT 32 U/L (12-78); AST/SGOT 12 U/L (15-37); Albumin 3.5 g/dL (3.4-5.0); Alkaline Phosphatase 150 U/L (45-117); BUN Blood Urea Nitrogen 12 mg/dL (7-18); Bicarbonate 28 mmol/L (21-32); Bilirubin Direct 0.1 mg/dL (0-0.2); Bilirubin Total 0.5 mg/dL (0.2-1.0); Glucose Level 215 mg/dL (74-106); NT PRO-BNP 37 pg/mL (<125); Potassium 3.8 mmol/L (3.5-5.1); Protein, Total 7.6 g/dL (6.4-8.2); Sodium Level 137 mmol/L (136-145); Troponin (Emerg Dept Use Only) < 0.02 ng/mL (0.0-0.045)
[2021-04-29] MEDS ORDERED: NA CHLORIDE 0.9% 1,000 ML ONE (07:04)
[2021-04-29] MEDS ORDERED: FOLIC ACID 5 MG/ML VIAL ONE (07:08)
[2021-04-29] MEDS ORDERED: ENALAPRIL 10 MG TAB ONE (07:11)
[2021-04-29] MEDS ORDERED: METOPROLOL TAR 50 MG TAB ONE (07:11)
[2021-04-29] MEDS ORDERED: AMLODIPINE 10 MG TAB ONE (07:11)
--- NOTE | 2021-04-29 08:24 | RAD REPORT ---
EXAM DESCRIPTION: MRI - Brain Wo Cont - 04/29/2021 7:38 am CLINICAL HISTORY: DIZZINESS Headache, drowsiness, CVA symptomology COMPARISON: Head Brain Wo Cont dated 04/29/2021 TECHNIQUE: Multi-sequence, multiplanar MR imaging of the brain was performed without contrast. FINDINGS: No intracranial hemorrhage, hydrocephalus or extra-axial fluid collections. No edema or sh ift of midline structures. No findings to suspect brain mass. DWI is negative for acute CVA. Midline structures are normally formed. Mild mucosal thickening of the inferior aspect of both maxillary antra. The paranasal sinuses and mas toids are otherwise clear. IMPRESSION: Negative for acute CVA or other acute intracranial abnormality.
--- NOTE | 2021-04-29 08:59 | RAD REPORT ---
EXAM DESCRIPTION: RAD - Chest Single View - 04/29/2021 6:24 am CLINICAL HISTORY: COUGH Chest pain. COMPARISON: Chest Pa And Lat (2 Views) dated 09/22/2019; CHEST SINGLE VIEW dated 10/17/2011; CHEST SING LE VIEW dated 08/22/2010; CHEST SINGLE VIEW dated 01/12/2009 FINDINGS: Portable technique limits examination quality. The lungs are grossly clear. The heart is upper limit of normal in size. No displaced fractures. IMPRESSION: No acute intrathoracic process suspected.
--- NOTE | 2021-04-29 09:39 | ER ---
Nurse's Notes [facility] Name: Chente Armenta Age: 56 yrs Sex: Male : 1965 Arrival Date: 04/29/2021 Time: 04:58 Bed 23 Private MD: Diagnosis: Essential (primary) hypertension;Paresthesia of skin;Hyperglycemia, unspecified Presentation: 04/29 05:20 Chief complaint: Patient states: he hasn't been able to sleep tonight he is worried bb about the tingling which started in his right heel approx 2200 last night last time he had symptoms like this he had a TIA. Coronavirus screen: At this time, the client does not indicate any symptoms associated with coronavirus-19. Ebola Screen: No symptoms or risks identified at this time. Initial Sepsis Screen: Does the patient meet any 2 criteria? No. Patient's initial sepsis screen is negative. Does the patient have a suspected source of infection? No. Patient's initial sepsis screen is negative. Risk Assessment: Do you want to hurt yourself or someone else? Patient reports no desire to harm self or others. Onset of symptoms was April 28, 2021. 05:20 Method Of Arrival: Ambulatory bb 05:20 Acuity: JUMANA 3 bb Triage Assessment: 05:23 General: Appears in no apparent distress. Behavior is calm, cooperative. Pain: Denies bb pain. Neuro: Level of Consciousness is awake, alert, obeys commands, Oriented to person, place, time, situation. Cardiovascular: Capillary refill < 3 seconds Patient's skin is warm and dry. Respiratory: Respiratory effort is even, unlabored, Respiratory pattern is regular. GI: No signs and/or symptoms were reported involving the gastrointestinal system. Derm: Skin is pink, warm \T\ dry. Musculoskeletal: Circulation, motion, and sensation intact. Historical: - Allergies: 05:23 Amoxicillin; bb - Home Meds: 05:23 amlodipine 10 mg tab 1 tab once daily [Active]; aspirin 81 mg Oral TbEC 1 tab once bb daily [Active]; enalapril maleate 20 mg Oral tab 1 tab 2 times per day [Active]; metoprolol tartrate 100 mg Oral tab 1 tab 2 times per day [Active]; - PMHx: 05:23 CVA; Hypertension; bb - PSHx: 05:23 None; bb - Immunization history:: Adult Immunizations up to date, Client reports having NOT received the Covid vaccine. - Social history:: Smoking status: Patient denies any tobacco usage or history of. Patient uses alcohol, occasionally. Patient/guardian denies using street drugs. - Family history:: not pertinent. Screenin:13 Abuse screen: Denies threats or abuse. Nutritional screening: No deficits noted. ap3 Tuberculosis screening: No symptoms or risk factors identified. Fall Risk None identified. Assessment: 05:42 General: Appears in no apparent distress. Behavior is calm, cooperative, Smells of ch4 Reports. Pain: Denies pain. Neuro: No deficits noted. Cardiovascular: No deficits noted. Respiratory: No deficits noted. GI: No deficits noted. : No deficits noted. EENT: No deficits noted. Derm: No deficits noted. Musculoskeletal: No deficits noted. 08:37 General: Appears in no apparent distress. comfortable, Behavior is calm, cooperative, ap3 appropriate for age. Pain: Denies pain. Neuro: Level of Consciousness is awake, alert, obeys commands, Oriented to person, place, time, situation, Appropriate for age Moves all extremities. Gait is steady, Speech is normal. 09:37 Reassessment: Patient and/or family updated on plan of care and expected duration. Pain ap3 level reassessed. Patient is alert, oriented x 3, equal unlabored respirations, skin warm/dry/pink. Vital Signs: 05:20 BP 170 / 91; Pulse 69; Resp 16 S; Temp 98.3; Pulse Ox 99% on R/A; Weight 99.79 kg (R); bb Height 5 ft. 11 in. (180.34 cm) (R); Pain 0/10; 05:41 BP 173 / 91 Sitting; Pulse 67; Resp 18 S; Temp 98.2; Pulse Ox 99% on R/A; ch4 07:14 BP 136 / 86; Pulse 63; Resp 17; Pulse Ox 99% on R/A; ap3 08:22 BP 165 / 86; Pulse 62; Resp 18; Pulse Ox 98% on R/A; ap3 09:37 BP 142 / 83; Pulse 76; Pulse Ox 98% on R/A; ap3 05:20 Body Mass Index 30.68 (99.79 kg, 180.34 cm) bb NIH Stroke Scale Scores: 05:45 NIHSS Score: 0 [facility] ED Course: 04:58 Patient arrived in ED. bp1 05:23 Triage completed. bb 05:23 Arm band placed on Patient placed in an exam room, on a stretcher. bb 05:28 Erin Hall, RN is Primary Nurse. ch4 05:28 Otf Marie MD is Attending Physician. peng 06:02 Inserted saline lock: 18 gauge in right antecubital area, using aseptic technique. ch4 06:14 CT Head Brain wo Cont Sent. ch4 06:19 CT Head Brain wo Cont In Process Unspecified. EDMS 06:23 XRAY Chest (1 view) In Process Unspecified. EDMS 07:13 Patient moved to MRI via wheelchair. ap3 07:13 Patient has correct armband on for positive identification. Bed in low position. Call ap3 light in reach. Side rails up X2. counter checker on. Pulse ox on. NIBP on. Door closed. Noise minimized. 07:36 Brain Wo Cont In Process Unspecified. EDMS 07:44 Patient moved back from MRI. ap3 09:38 Ziyad Kilpatrick MD is Referral Physician. jr8 09:49 No provider procedures requiring assistance completed. IV discontinued, intact, ap3 bleeding controlled, No redness/swelling at site. Pressure dressing applied. Administered Medications: 06:02 Drug: NS 0.9% 1000 ml Route: IV; Rate: 125 ml/hr; Site: right antecubital; ch4 09:50 Follow up: IV Status: Completed infusion; IV Intake: 800ml ap3 06:44 Drug: foLIC Acid 1 mg Route: IVPB; Site: right antecubital; ch4 09:50 Follow up: IV Status: Completed infusion ap3 06:49 Drug: Lopressor (metoprolol TARTRATE) 100 mg Route: PO; ch4 09:50 Follow up: Response: No adverse reaction; Blood pressure is lowered ap3 06:49 Drug: Enalapril 20 mg Route: PO; ch4 09:50 Follow up: Response: No adverse reaction; Blood pressure is lowered ap3 06:49 Drug: Norvasc (amlodipine) 10 mg Route: PO; ch4 09:50 Follow up: Response: No adverse reaction ap3 Intake: 09:50 IV: 800ml; Total: 800ml. ap3 Outcome: 09:38 Discharge ordered by . jr8 09:49 Discharged to home ambulatory. ap3 09:49 Condition: good 09:49 Discharge instructions given to patient, Instructed on discharge instructions, follow up and referral plans. medication usage, Demonstrated understanding of instructions, follow-up care, medications, Prescriptions given X 4. 09:52 Patient left the ED. ap3 NIH Stroke Scale - NIH Stroke Score Date: 04/29/2021 Time: 05:45 Total Score = 0 1a. Level of Consciousness (LOC) - 0(Alert) 1b. Level of Consciousness (LOC) (Month \T\ Age) - 0(Both) 1c. LOC Commands (Open \T\ Closes Eyes/Chief Lock Tender Operator) - 0(Both) 2. Best Gaze (Lateral Gaze Paresis) - 0(Normal) 3. Visual Field Loss - 0(No visual loss) 4. Facial Palsy - 0(Normal) 5a. Left Arm: Motor (10-second hold) - 0(No drift) 5b. Right Arm: Motor (10-second hold) - 0(No drift) 6a. Left Leg: Motor (5-second hold - always test supine) - 0(No drift) 6b. Right Leg: Motor (5-second hold - always test supine) - 0(No drift) 7. Limb Ataxia (finger/nose \T\ heel/araujo - test with eyes open) - 0(Absent) 8. Sensory Loss (pinprick arms/legs/face) - 0(Normal) 9. Best Language: Aphasia (description/naming/reading) - 0(No aphasia) 10. Dysarthria (speech clarity - read or repeat words) - 0(Normal) 11. Extinction and Inattention (visual/tactile/auditory/spatial/personal) - 0(No abnormality) Initials: peng Signatures: Dispatcher [employer] EDMN Otf Marie MD MD cha Ballard, Brenda RN RN Antonio Blanco PA PA jr8 Prema Bob RN RN ap3 Gayle Alonso Christina, RN RN ch4 Corrections: (The following items were deleted from the chart) 07:14 07:13 Patient moved to MRI via stretcher. ap3 ap3
--- NOTE | 2021-04-29 09:39 | EDPHYS ---
Physician Documentation [facility] Name: Chente Armenta Age: 56 yrs Sex: Male : 1965 Arrival Date: 04/29/2021 Time: 04:58 Bed 23 Private MD: LUCERO Physician Otf Marie HPI: 04/29 05:45 This 56 yrs old Male presents to ER via Ambulatory with complaints of Anxiety. [facility] 05:45 The patient presents to the emergency department with paresthesias of the heel of right peng foot. Onset: The symptoms/episode began/occurred last night. Context: occurred at home, occurred while the patient was at rest. Associated signs and symptoms: Pertinent positives: paresthesias. Severity of symptoms: At their worst the symptoms were very mild mild in the emergency department the symptoms have improved markedly. Patient's baseline: Neuro: alert and fully oriented. Current symptoms: Currently, the patient is not experiencing any symptoms. The patient has experienced a previous episode, approximately 7 years ago. Historical: - Allergies: 05:23 Amoxicillin; bb - Home Meds: 05:23 amlodipine 10 mg tab 1 tab once daily [Active]; aspirin 81 mg Oral TbEC 1 tab once bb daily [Active]; enalapril maleate 20 mg Oral tab 1 tab 2 times per day [Active]; metoprolol tartrate 100 mg Oral tab 1 tab 2 times per day [Active]; - PMHx: 05:23 CVA; Hypertension; bb - PSHx: 05:23 None; bb - Immunization history:: Adult Immunizations up to date, Client reports having NOT received the Covid vaccine. - Social history:: Smoking status: Patient denies any tobacco usage or history of. Patient uses alcohol, occasionally. Patient/guardian denies using street drugs. - Family history:: not pertinent. ROS: 05:45 Constitutional: Negative for fever, chills, and weight loss, Eyes: Negative for injury, peng pain, redness, and discharge, ENT: Negative for injury, pain, and discharge, Neck: Negative for injury, pain, and swelling, Cardiovascular: Negative for chest pain, palpitations, and edema, Respiratory: Negative for shortness of breath, cough, wheezing, and pleuritic chest pain, Abdomen/GI: Negative for abdominal pain, nausea, vomiting, diarrhea, and constipation, Back: Negative for injury and pain, : Negative for injury, bleeding, discharge, and swelling, MS/Extremity: Negative for injury and deformity, Skin: Negative for injury, rash, and discoloration, Psych: Negative for depression, anxiety, suicide ideation, homicidal ideation, and hallucinations, Allergy/Immunology: Negative for hives, rash, and allergies, Endocrine: Negative for neck swelling, polydipsia, polyuria, polyphagia, and marked weight changes, Hematologic/Lymphatic: Negative for swollen nodes, abnormal bleeding, and unusual bruising. 05:45 Neuro: Positive for tingling, Negative for altered mental status, dizziness, gait disturbance, headache, hearing loss, loss of consciousness, numbness, seizure activity, speech changes, syncope, near syncope, tinnitus, tremor, visual changes, weakness, acute changes. Exam: 05:45 Constitutional: This is a well developed, well nourished patient who is awake, alert, peng and in no acute distress. Head/Face: Normocephalic, atraumatic. Eyes: Pupils equal round and reactive to light, extra-ocular motions intact. Lids and lashes normal. Conjunctiva and sclera are non-icteric and not injected. Cornea within normal limits. Periorbital areas with no swelling, redness, or edema. ENT: Nares patent. No nasal discharge, no septal abnormalities noted. Tympanic membranes are normal and external auditory canals are clear. Oropharynx with no redness, swelling, or masses, exudates, or evidence of obstruction, uvula midline. Mucous membranes moist. Neck: Trachea midline, no thyromegaly or masses palpated, and no cervical lymphadenopathy. Supple, full range of motion without nuchal rigidity, or vertebral point tenderness. No Meningismus. Chest/axilla: Normal chest wall appearance and motion. Nontender with no deformity. No lesions are appreciated. Cardiovascular: Regular rate and rhythm with a normal S1 and S2. No gallops, murmurs, or rubs. Normal PMI, no JVD. No pulse deficits. Respiratory: Lungs have equal breath sounds bilaterally, clear to auscultation and percussion. No rales, rhonchi or wheezes noted. No increased work of breathing, no retractions or nasal flaring. Abdomen/GI: Soft, non-tender, with normal bowel sounds. No distension or tympany. No guarding or rebound. No evidence of tenderness throughout. Back: No spinal tenderness. No costovertebral tenderness. Full range of motion. Male : Normal genitalia with no discharge or lesions. Skin: Warm, dry with normal turgor. Normal color with no rashes, no lesions, and no evidence of cellulitis. MS/ Extremity: Pulses equal, no cyanosis. Neurovascular intact. Full, normal range of motion. Neuro: Awake and alert, GCS 15, oriented to person, place, time, and situation. Cranial nerves II-XII grossly intact. Motor strength 5/5 in all extremities. Sensory grossly intact. Cerebellar exam normal. Normal gait. Psych: Awake, alert, with orientation to person, place and time. Behavior, mood, and affect are within normal limits. 05:59 ECG was reviewed by the Attending Physician. [facility] Vital Signs: 05:20 BP 170 / 91; Pulse 69; Resp 16 S; Temp 98.3; Pulse Ox 99% on R/A; Weight 99.79 kg (R); bb Height 5 ft. 11 in. (180.34 cm) (R); Pain 0/10; 05:41 BP 173 / 91 Sitting; Pulse 67; Resp 18 S; Temp 98.2; Pulse Ox 99% on R/A; ch4 07:14 BP 136 / 86; Pulse 63; Resp 17; Pulse Ox 99% on R/A; ap3 08:22 BP 165 / 86; Pulse 62; Resp 18; Pulse Ox 98% on R/A; ap3 09:37 BP 142 / 83; Pulse 76; Pulse Ox 98% on R/A; ap3 05:20 Body Mass Index 30.68 (99.79 kg, 180.34 cm) NIH Stroke Scale Scores: 05:45 NIHSS Score: 0 peng MDM: 05:28 Patient medically screened. [facility] 05:57 Data reviewed: vital signs, nurses notes, lab test result(s), EKG, radiologic studies, [facility] CT scan, plain films. Data interpreted: ekg monitor: rate is 67 beats/min. Test interpretation: by ED physician or midlevel provider: ECG, plain radiologic studies. Counseling: I had a detailed discussion with the patient and/or guardian regarding: the historical points, exam findings, and any diagnostic results supporting the discharge/admit diagnosis, lab results, radiology results. 04/29 05:43 Order name: Basic Metabolic Panel [facility] 04/29 05:43 Order name: CBC with Diff [facility] 04/29 05:43 Order name: LFT's; Complete Time: 06:33 [facility] 04/29 05:43 Order name: Magnesium; Complete Time: 06:33 [facility] 04/29 05:43 Order name: NT PRO-BNP; Complete Time: 06:33 [facility] 04/29 05:43 Order name: PT-INR; Complete Time: 06:33 [facility] 04/29 05:43 Order name: Troponin (emerg Dept Use Only); Complete Time: 06:33 [facility] 04/29 05:43 Order name: XRAY Chest (1 view); Complete Time: 09:38 [facility] 04/29 05:43 Order name: CT Head Brain wo Cont [facility] 04/29 05:43 Order name: Sed Rate; Complete Time: 06:57 [facility] 04/29 05:43 Order name: Basic Metabolic Panel; Complete Time: 06:33 EDMS 04/29 05:43 Order name: CBC with Automated Diff; Complete Time: 06:57 EDMS 04/29 07:28 Order name: Brain Wo Cont; Complete Time: 09:38 EDMS 04/29 05:43 Order name: EKG; Complete Time: 05:44 [facility] 04/29 05:43 Order name: Cardiac monitoring; Complete Time: 05:45 [facility] 04/29 05:43 Order name: EKG - Nurse/Tech; Complete Time: 05:45 [facility] 04/29 05:43 Order name: IV Saline Lock; Complete Time: 06:01 [facility] 04/29 05:43 Order name: Labs collected and sent; Complete Time: 06:01 [facility] 04/29 05:43 Order name: O2 Per Protocol; Complete Time: 06:01 [facility] 04/29 05:43 Order name: O2 Sat Monitoring; Complete Time: 06:01 [facility] 04/29 06:40 Order name: Misc. Order: allow pt to take his morning meds; Complete Time: 06:45 [facility] EC:59 Rate is 62 beats/min. Rhythm is regular. QRS [place] is Normal. [place] interval is normal. QRS peng interval is normal. QT interval is normal. No Q waves. T waves are Normal. No ST changes noted. Clinical impression: No evidence of ischemia. Interpreted by me. Reviewed by me. Administered Medications: 06:02 Drug: NS 0.9% 1000 ml Route: IV; Rate: 125 ml/hr; Site: right antecubital; ch4 09:50 Follow up: IV Status: Completed infusion; IV Intake: 800ml ap3 06:44 Drug: foLIC Acid 1 mg Route: IVPB; Site: right antecubital; ch4 09:50 Follow up: IV Status: Completed infusion ap3 06:49 Drug: Lopressor (metoprolol TARTRATE) 100 mg Route: PO; ch4 09:50 Follow up: Response: No adverse reaction; Blood pressure is lowered ap3 06:49 Drug: Enalapril 20 mg Route: PO; ch4 09:50 Follow up: Response: No adverse reaction; Blood pressure is lowered ap3 06:49 Drug: Norvasc (amlodipine) 10 mg Route: PO; ch4 09:50 Follow up: Response: No adverse reaction ap3 Disposition Summary: 04/29/21 09:38 Discharge Ordered Location: Home jr8 Problem: new jr8 Symptoms: have improved jr8 Condition: Stable jr8 Diagnosis - Essential (primary) hypertension jr8 - Paresthesia of skin jr8 - Hyperglycemia, unspecified jr8 Followup: peng - With: Private Physician - When: 1 - 2 days - Reason: Recheck today's complaints, Continuance of care, Re-evaluation by your physician Followup: peng - With: - When: 2 - 3 days - Reason: Recheck today's complaints, Re-evaluation by your physician Discharge Instructions: - Discharge Summary Sheet peng - Hyperglycemia peng - Hypertension, Adult peng - Paresthesia peng - Hypertension, Adult, [id number] peng - Blood Glucose Monitoring, Adult peng - Paresthesia, [id number] peng - Aspirin and Your Heart peng Forms: - Medication Reconciliation Form jr8 - Thank You Letter jr8 - Antibiotic Education jr8 - Prescription Opioid Use jr8 Prescriptions: - Lopressor 100 mg Oral tablet - take 1 tablet by ORAL route 2 times per day; 60 tablet; Refills: 0, Product peng Selection Permitted - Norvasc 10 mg Oral Tablet - take 1 tablet by ORAL route once daily; 30 tablet; Refills: 0, Product peng Selection Permitted - Enalapril Maleate 20 mg Oral Tablet - take 1 tablet by ORAL route every 12 hours; 760 tablet; Refills: 0, Product peng Selection Permitted - Folic Acid 1 mg Oral Tablet - take 1 tablet by ORAL route once daily; 30 tablet; Refills: 0, Product peng Selection Permitted NIH Stroke Scale - NIH Stroke Score Date: 04/29/2021 Time: 05:45 Total Score = 0 1a. Level of Consciousness (LOC) - 0(Alert) 1b. Level of Consciousness (LOC) (Month \T\ Age) - 0(Both) 1c. LOC Commands (Open \T\ Closes Eyes/Fire Hose Curer) - 0(Both) 2. Best Gaze (Lateral Gaze Paresis) - 0(Normal) 3. Visual Field Loss - 0(No visual loss) 4. Facial Palsy - 0(Normal) 5a. Left Arm: Motor (10-second hold) - 0(No drift) 5b. Right Arm: Motor (10-second hold) - 0(No drift) 6a. Left Leg: Motor (5-second hold - always test supine) - 0(No drift) 6b. Right Leg: Motor (5-second hold - always test supine) - 0(No drift) 7. Limb Ataxia (finger/nose \T\ heel/araujo - test with eyes open) - 0(Absent) 8. Sensory Loss (pinprick arms/legs/face) - 0(Normal) 9. Best Language: Aphasia (description/naming/reading) - 0(No aphasia) 10. Dysarthria (speech clarity - read or repeat words) - 0(Normal) 11. Extinction and Inattention (visual/tactile/auditory/spatial/personal) - 0(No abnormality) Initials: [facility] Signatures: Dispatcher [employer] EDMS Otf Marie MD MD cha Ballard, Brenda, RN RN bb Roszak, Josh, PA PA jr8 Erin Hall RN RN ch4 Prokisch, Amanda RN ap3 Corrections: (The following items were deleted from the chart) 07:28 06:35 MR STROKE PROTOCOL+MRI.RAD.BRZ ordered. EDMS EDMS
[2021-04-29 09:58] VITALS: O2SAT 99
[2021-04-29 10:00] VITALS: BP 173/91; TEMP 98.2
--- NOTE | 2021-04-29 10:10 | RAD REPORT ---
EXAM DESCRIPTION: CT Head/Brain Without Contrast CLINICAL HISTORY: Tingling right heel COMPARISON: None. TECHNIQUE: Head/brain axial images acquired without contrast. Coronal and sagittal reformats created . Exam performed according to departmental dose-optimization program which includes automated exposur e control, adjustment of mA and/or kV according to patient size, and/or use of iterative reconstructi on technique. FINDINGS: No midline shift, mass effect, intracranial hemorrhage, or hydrocephalus. Right thalamus/internal capsule posterior limb old lacunar infarct. Paranasal sinuses clear. Mastoid air cells clear. No skull fracture or significant skull lesion. Calcified atherosclerotic intracranial internal carotid arteries. IMPRESSION: No CT evidence of acute intracranial abnormality. If there remains strong clinical suspicion of acute ischemic infarct, then MR brain/head recommended (if there are no contraindications). Electronically signed by: Hiram Pierce MD 04/29/2021 6:54 AM CDT Due to temporary technical issues with the PACS/Fluency reporting system, reports are being signed by the in house radiologists without review as a courtesy to insure prompt reporting. The interpreting radiologist is fully responsible for the content of the report.
--- NOTE | 2021-04-30 16:30 | EKG ---
Test Date: 2021-04-29 Test Time: 05:52:28 Nuclear Fuel Enrichment Technician: STALIN MEASUREMENT RESULTS: Intervals: Rate: 62 DC: 152 QRSD: 102 QT: 380 QTc: 385 [place]: P: -9 DC: 152 QRS: -46 T: 33 INTERPRETIVE STATEMENTS: Normal sinus rhythm Left axis deviation Abnormal ECG Compared to ECG 10/16/2011 20:47:51 Left-axis deviation now present Sinus bradycardia no longer present Electronically Signed On 04-30-21 16:24:30 CDT by Mario Glover
== END 2021-04-29 09:52 | disposition home or self-care (01) ==
LOC: ER 04:54
DX: R73.9 Hyperglycemia, unspecified (principal); I10 Essential (primary) hypertension; Z86.73 Personal history of transient ischemic attack (TIA), and cerebral infarction without residual deficits; Z79.82 Long term (current) use of aspirin; Z88.1 Allergy status to other antibiotic agents
CPT/HCPCS: 96365; 96361; 93005; 85025; 80048; 36415; 83735; 85610; 80076; 85652; 84484; 83880; 70450; 71045; 70551; 99285; 96366; J7030